=== PATIENT | male | born 1975 | race American Indian/Alaskan Native ===

== ENCOUNTER 2016-09-21 06:53 | Outpatient (CLI) | payer BC | END 2016-09-21 06:54 | disposition home or self-care (01) | LOC: ECHO 06:53 | PROVIDERS: ATTEND Internal Medicine | DX: I37.1 Nonrheumatic pulmonary valve insufficiency (principal); R01.1 Cardiac murmur, unspecified; I77.819 Aortic ectasia, unspecified site | CPT/HCPCS: 93306 ==